=== PATIENT | female | born 1995 | race Caucasian/White ===

== ENCOUNTER 2024-04-13 23:01 | Emergency (ER) | payer SELFPAY ==
[~2024-04-13] VITALS: Ht 160 cm; Wt 60.0 kg
[2024-04-13 23:22] VITALS: BP 114/60; PULSE 76; RESP 18; TEMP 36.7; O2SAT 100
[2024-04-14] MEDS ORDERED: LIDOCAINE HCL/PF 1% 10 MG/ML 5ML VIAL INFIL ONE
[2024-04-14] MEDS: TETANUS, DIPHTHERIA, PERTUSSIS VAC/PF 0.5ML (>10YR OLD) IM ONE (00:33)
[2024-04-14] MEDS: IBUPROFEN 600MG TABLET PO ONE (00:35)
[2024-04-14] MEDS ORDERED: IBUP-2029 MT (01:18)
[2024-04-14] MEDS ORDERED: BO1 TP (01:18)
[2024-04-14] MEDS: BACITRACIN ZINC OINT UDPKT TOP ONE (02:09)
== END 2024-04-14 02:13 | disposition home or self-care (01) ==
LOC: ER 23:01
DX: S61.011A Laceration without foreign body of right thumb without damage to nail, initial encounter (principal); Z79.899 Other long term (current) drug therapy; W26.0XXA Contact with knife, initial encounter; Y93.89 Activity, other specified; Y92.89 Other specified places as the place of occurrence of the external cause
CPT/HCPCS: 12001; 90471; 90715; 99283

== ENCOUNTER 2024-04-23 11:59 | Emergency (ER) | payer OTHER ==
[~2024-04-23] VITALS: Ht 160 cm; Wt 64.0 kg
[~2024-04-23 11:59] MED LIST: BO1 TP; IBUP-2029 MT
[2024-04-23 12:08] VITALS: PULSE 82; O2SAT 99
[2024-04-23 12:20] VITALS: BP 99/58; RESP 16; TEMP 36.8; O2SAT 100
[2024-04-23] MEDS ORDERED: ACET-2708 MT (12:31)
== END 2024-04-23 12:40 | disposition home or self-care (01) ==
LOC: ER 11:59
DX: S61.011D Laceration without foreign body of right thumb without damage to nail, subsequent encounter (principal); X58.XXXD Exposure to other specified factors, subsequent encounter
CPT/HCPCS: 99282

== ENCOUNTER 2024-04-29 13:17 | Emergency (ER) | payer OTHER ==
[~2024-04-29] VITALS: Ht 162.6 cm; Wt 64.0 kg
[~2024-04-29 13:17] MED LIST changes: +ACET-2708 MT
[2024-04-29 13:22] VITALS: BP 104/63; PULSE 82; RESP 16; TEMP 36.7; O2SAT 99
== END 2024-04-29 13:49 | disposition home or self-care (01) ==
LOC: ER 13:17
DX: Z48.02 Encounter for removal of sutures (principal); Z79.899 Other long term (current) drug therapy
CPT/HCPCS: 99281; Z7610; A4606